=== PATIENT | female | born 1970 ===

== ENCOUNTER 2018-01-30 07:37 | Day surgery (SDC) | payer OTHER ==
[2018-01-30] MEDS ORDERED: MACROBID 100 M100 MG PO (14:02)
[2018-01-30] MEDS ORDERED: ULTRACET PO (14:03)
== END 2018-01-30 17:00 | disposition home or self-care (01) ==
LOC: CIR.AMB 07:37
DX: N39.3 Stress incontinence (female) (male) (principal)
CPT/HCPCS: 57288; C1771